=== PATIENT | male | born 1930 | race Caucasian/White ===

== ENCOUNTER 2016-12-20 16:38 | Emergency (ER) | payer MEDICARE, BC ==
[~2016-12-20 16:38] MED LIST: ADULT LOW DOSE81 MG PO
[2016-12-20 21:59] LABS: RED BLOOD COUNT 4.54 M/UL (4.20-5.50); WHITE BLOOD COUNT 5.8 K/UL (4.5-11.0)
[2017-06-12] MEDS ORDERED: ASPIR 8181 MG PO (08:13)
[2017-06-12] MEDS ORDERED: LIPITOR TAB 2020 MG PO (08:14)
[2017-06-12] MEDS ORDERED: BUMETANIDE1 MG PO (08:14)
[2017-06-12] MEDS ORDERED: ELIQUIS2.5 MG PO (08:15)
[2017-06-12] MEDS ORDERED: COREG 3.125M3.125 MG PO (08:15)
[2017-06-12] MEDS ORDERED: HUMULIN N100 UNIT/1 SQ (08:17)
[2017-06-12] MEDS ORDERED: JALYN 0.5-0.41 EACH PO (08:18)
[2017-06-12] MEDS ORDERED: ISOSORBIDE MONO60 MG PO (08:18)
[2017-06-12] MEDS ORDERED: KLOR-CON M2020 MEQ PO (08:19)
[2017-06-12] MEDS ORDERED: LEVOTHYROXINE50 MCG PO (08:20)
[2017-06-12] MEDS ORDERED: LACTULOSE10 GM/15 M PO (08:20)
[2017-06-12] MEDS ORDERED: LOSARTAN POTASS50 MG PO (08:21)
[2017-06-12] MEDS ORDERED: GAVILAX17 GM PO (08:22)
[2017-06-12] MEDS ORDERED: STOOL SOFTNER PO (08:23)
[2017-06-12] MEDS ORDERED: ACID CONTROL150 MG PO (08:23)
[2017-06-12] MEDS ORDERED: TYLENOL W/CODEIN1 E1 PO (12:23)
[2017-06-12] MEDS ORDERED: LEVAQUIN500 MG PO (12:23)
== END 2016-12-21 00:10 | disposition home or self-care (01) ==
LOC: ER1 16:38
PROVIDERS: Physician Assistant
DX: K80.70 Calculus of gallbladder and bile duct without cholecystitis without obstruction (principal); N28.9 Disorder of kidney and ureter, unspecified; I11.0 Hypertensive heart disease with heart failure; I50.9 Heart failure, unspecified; E11.9 Type 2 diabetes mellitus without complications; I25.810 Atherosclerosis of coronary artery bypass graft(s) without angina pectoris; I25.2 Old myocardial infarction; Z95.1 Presence of aortocoronary bypass graft; Z95.810 Presence of automatic (implantable) cardiac defibrillator
CPT/HCPCS: 36415; 80053; 82962; 83605; 83690; 85025; 99284